=== PATIENT | female | born 1955 | race African-American/Black ===

== ENCOUNTER 2022-04-08 16:55 | Emergency (ER) | payer OTHER ==
[~2022-04-08] VITALS: Ht 167.6 cm; Wt 94.0 kg
[2022-04-08 17:30] VITALS: BP 186/91
[2022-04-09 00:02] LABS: BASOPHILS % 0.4 % (0.0-2.0); EOSINOPHILS % 0.5 % (0.0-5.0); HEMOGLOBIN. 13.8 g/dL (12.0-16.0); LYMPHOCYTES % 28.9 % (20.0-50.0); MEAN CORPUSCULAR HEMOGLOBIN 30.2 pg (28.0-32.0); MEAN CORPUSCULAR VOLUME 91.9 fL (81.0-99.0); MEAN PLATELET VOLUME 10.1 fl (7.4-10.4); MONOCYTES % 5.2 % (2.0-8.0); PLATELET 201 x1000/uL (130-400); RED BLOOD CELL COUNT 4.57 mill/uL (4.2-5.4)
[2022-04-09 01:12] LABS: CHLORIDE 106 mEq/L (98-107)
[2022-04-09 01:17] LABS: ETHANOL BLOOD < 10 mg/dL
[2022-04-09 09:47] LABS: BASOPHILS % 0.3 % (0.0-2.0); CHLORIDE 106 mEq/L (98-107); EOSINOPHILS % 0.3 % (0.0-5.0); HEMATOCRIT. 45.1 % (36.0-48.0); HEMOGLOBIN. 14.6 g/dL (12.0-16.0); LYMPHOCYTES % 15.6 % (20.0-50.0); MEAN CORPUSCULAR HEMOGLOBIN 30.2 pg (28.0-32.0); MEAN CORPUSCULAR VOLUME 93.1 fL (81.0-99.0); MEAN PLATELET VOLUME 10.3 fl (7.4-10.4); MONOCYTES % 5.2 % (2.0-8.0); NEUTROPHILS % 78.6 % (40.0-76.0); PLATELET 212 x1000/uL (130-400); RED BLOOD CELL COUNT 4.85 mill/uL (4.2-5.4); RED CELL DISTRIBUTION WIDTH 15.4 % (11.6-14.6)
== END 2022-04-09 10:01 | disposition home or self-care (01) ==
LOC: ER 16:55
DX: Z04.89 Encounter for examination and observation for other specified reasons (principal); I10 Essential (primary) hypertension; E78.5 Hyperlipidemia, unspecified
CPT/HCPCS: 36415; 71045; 80053; 80320; 82962; 83880; 84484; 85025; 93005; 99285; G0480

== ENCOUNTER 2024-02-29 15:58 | Emergency (ER) | payer OTHER ==
[~2024-02-29] VITALS: Ht 167.6 cm; Wt 88.0 kg
[2024-02-29 16:08] VITALS: TEMP 98.4; O2SAT 100
[2024-02-29 17:06] LABS: BASOPHILS % 0.3 % (0.0-2.0); HEMATOCRIT. 42.6 % (36.0-48.0); HEMOGLOBIN. 14.1 g/dL (12.0-16.0); LYMPHOCYTES % 7.4 % (20.0-50.0); MEAN CORPUSCULAR HEMOGLOBIN 30.6 pg (28.0-32.0); MEAN CORPUSCULAR HGB CONC 33.1 g/dL (31.0-37.0); MEAN CORPUSCULAR VOLUME 92.4 fL (81.0-99.0); MEAN PLATELET VOLUME 10.4 fl (7.4-10.4); MONOCYTES % 4.4 % (2.0-8.0); NEUTROPHILS % 87.9 % (40.0-76.0); PLATELET 155 x1000/uL (130-400); RED BLOOD CELL COUNT 4.61 mill/uL (4.2-5.4); RED CELL DISTRIBUTION WIDTH 15.5 % (11.6-14.6); WHITE BLOOD COUNT 8.3 x1000/uL (4.5-11.0)
[2024-02-29 17:08] LABS: POTASSIUM 3.4 mEq/L (3.5-5.1)
[2024-02-29 17:09] LABS: CALCIUM 9.5 mg/dL (8.7-10.4)
[2024-02-29 17:14] LABS: CREATININE 1.2 mg/dL (0.6-1.0)
[2024-03-01 00:09] LABS: TROPONIN I HIGH SENSITIVITY 4 ng/L (3.0-34)
[2024-03-01] MEDS: POTASSIUM CHLORIDE 20MEQ/PACKET PO ONE (00:11)
[2024-03-01 01:16] VITALS: BP 142/84; PULSE 81; RESP 16; O2SAT 98
== END 2024-03-01 01:17 | disposition home or self-care (01) ==
LOC: ER 15:58
DX: R55 Syncope and collapse (principal); E87.6 Hypokalemia; I10 Essential (primary) hypertension; E78.00 Pure hypercholesterolemia, unspecified; Z90.710 Acquired absence of both cervix and uterus
CPT/HCPCS: 36415; 71045; 80048; 82962; 84484; 85025; 93005; 99285